=== PATIENT | female | born 1980 | race Caucasian/White ===

== ENCOUNTER 2022-01-08 10:25 | Outpatient (CLI) | payer MEDICARE, MEDICAID, SELFPAY ==
[2022-01-08 10:43] LABS: Hematocrit 38.8 % (37.0-47.0); Hemoglobin 12.9 g/dL (12.0-15.0); Mean Corpuscular HGB Conc 33.2 g/dl (32-36); Mean Corpuscular Volume 93.3 fl (80-100); Mean Platelet Volume 10.8 fl (7.4-10.4); Platelet Count Result 188 k/mm3 (150-375); Red Blood Count 4.16 M/mm3 (4.2-5.4); Red Cell Distribution Width 14.7 % (11.5-14.5); White Blood Count 5.7 K/mm3 (4.5-10.0)
== END 2022-01-08 10:26 | disposition home or self-care (01) ==
LOC: ANHSURGERY 10:32
PROVIDERS: PCP Family Medicine; Visit Provider Obstetrics & Gynecology Gynecologic Oncology
DX: Z01.812 Encounter for preprocedural laboratory examination (principal); N93.9 Abnormal uterine and vaginal bleeding, unspecified
CPT/HCPCS: 36415; 85027; 86850; 86900; 86901

== ENCOUNTER 2022-01-11 00:55 | Day surgery (SDC) | payer MEDICARE, MEDICAID, SELFPAY ==
[2022-01-07 17:33] VITALS: BMI 22.0
--- NOTE | 2022-01-07 17:43 | PC.NURSE ---
Report to the Outpatient Waiting Room, entrance under the green pavilion located off [facility], at time __11:30___ on date _[id number] . OR Time: __1:30 . - You and your visitor will be asked a series of questions to screen for COVID 19 for your protection. - Only one visitor is allowed at this time. - The patient visitor is requested to leave or wait in car when not with patient. - A mask is required within the hospital. Patients may have clear liquids (water, carbonated beverages, clear teas, apple juice) until 3 hours prior to surgery with a maximum of 20 ounces. - No food from midnight until time of surgery - Infants may have breast milk until 4 hours before surgery, infant formula 6 hours prior to surgery. - Children will be allowed to drink immediately following surgery. If applicable, please bring a bottle or sippy cup to assist with drinking. Juice, water, soda, and popsicles are readily available. For infants on formula, please bring formula the day of surgery. Pacifiers are allowed. Take the following medications with a SIP of water the morning of surgery: INHALERS NEEDED Medications to discontinue per physician N/A Date to take last dose N/A Please no make-up, nail sammarinese, hairspray, perfume, deodorant, or body powder the day of surgery. No jewelry (including any body piercings) or valuables the day of surgery, leave them at home. Please take a shower or bath the night before, or the morning of, surgery with an antibacterial soap. Wear comfortable, loose fitting clothing. Children are encouraged to wear pajamas. - Jewelry must be removed prior to entering the operating room. Rings and piercings that are not removed may be cut off. - The hospital will not accept responsibility for valuables. - Please leave all valuables, including medications, at home the day of surgery. If you are going home after surgery, a licensed parcel post truck driver must drive you home. - NO public transportation without another adult. - We recommend that an adult stay with you for 24 hours following discharge. - We also recommend that you do not drive, make important decision, drink alcoholic beverages, or take any drugs that were not prescribed by your health care provider for at least 24 hours after your discharge time. Follow any additional instructions given to you from your surgeon. If you or anyone in your household have experienced Covid symptoms in the past week, please notify your surgeon or the nurse liaison at the phone number below for possible testing. Telephone instructions given to BRITTANY JERONIMO and asked if any additional questions and then verbalized understanding. Patient advised to call surgeon office or pre surgery nurse liaison [phone] if any additional questions.
--- NOTE | 2022-01-10 14:25 | P.PNAN_ITS ---
Anes - Eval Pre Procedure Procedure: Operation Date: 01/11/22 13:00 Proposed Procedures p Diagnostic Laparoscopy, Bilateral Salpingectomy - Juany Van DO s Hysteroscopy, Dilation and Curettage, Novasure Endometrial Ablation - Juany Van DO Date/Time: 01/10/22 14:25 Pre Op Diagnosis: desires sterility, abn uterine bleeding Patient Data Age: 41 Gender: F Height: 1.65 m Weight: 60 kg Allergies Allergy/AdvReac Type Severity Reaction Status Date / Time doxycycline AdvReac Intermediate Blister Verified 01/07/22 17:32 sulfamethoxazole AdvReac Intermediate Blister Verified 01/07/22 17:32 [From Bactrim] trimethoprim [From Bactrim] AdvReac Intermediate Blister Verified 01/07/22 17:32 Home Medications Medication Instructions Recorded Confirmed Type albuterol sulfate 2 puff INHALATION PRN 01/07/22 History fluticasone propion-salmeterol 1 ea INHALATION PRN 01/07/22 History [Advair Diskus] Patient hx anesthesia problems: none Family hx anesthesia problems: none Results Review: All pre-operative results and documents have been reviewed as part of the pre-operative evaluation. [facility] Past Medical History Medical History (Updated 01/10/22 @ 14:24 by Sagar Michael DO) Anxiety Asthma COPD (chronic obstructive pulmonary disease) PTSD (post-traumatic stress disorder) Social History Social History Smoking packs per day: 0.5 Smoking cigarettes per day: 10.0 Years smoked: 20 Smoking pack-years: 10.00 Tobacco type: cigarettes Smoking end date: 06/13/20 Substance use: current Substance use type: marijuana Last use: 01-07-22 Spiritual care concerns: No Exam Day of Procedure 01/10/22 14:25
[2022-01-11] VITALS (9 sets, daily range): BP systolic 118–127; BP diastolic 64–79; PULSE 61–101; RESP 12–20; TEMP 36.3–36.4; O2SAT 100
--- NOTE | 2022-01-11 07:45 | P.PNAN_ITS ---
Anes - Initial Pre Proc Eval Procedure: Operation Date: 01/11/22 13:00 Proposed Procedures p Diagnostic Laparoscopy, Bilateral Salpingectomy - Juany Van DO s Hysteroscopy, Dilation and Curettage, Novasure Endometrial Ablation - Juany Van DO Date/Time: 01/11/22 07:45 Surgeon: Juany Van DO Pre Op Diagnosis: desires sterility, abn uterine bleeding Patient Data Age: 41 Gender: F Height: 1.65 m Weight: 60 kg Allergies Allergy/AdvReac Type Severity Reaction Status Date / Time doxycycline AdvReac Intermediate Blister Verified 01/07/22 17:32 sulfamethoxazole AdvReac Intermediate Blister Verified 01/07/22 17:32 [From Bactrim] trimethoprim [From Bactrim] AdvReac Intermediate Blister Verified 01/07/22 17:32 Home Medications Medication Instructions Recorded Confirmed Type albuterol sulfate 2 puff INHALATION DAILY PRN 01/07/22 01/11/22 History fluticasone propion-salmeterol 1 ea INHALATION DAILY PRN 01/07/22 01/11/22 History [Advair Diskus] acetaminophen 1,000 mg PO Q6H PRN #30 cap 01/11/22 Rx gabapentin 300 mg PO TID #12 cap 01/11/22 Rx hydrocodone-acetaminophen 1 tablet PO Q6H PRN #8 tablet 01/11/22 Rx ibuprofen 600 mg PO Q6H PRN #30 tablet 01/11/22 Rx polyethylene glycol 3350 [Miralax] 17 g PO BID #119 g 01/11/22 Rx Patient hx anesthesia problems: none Family hx anesthesia problems: none Results Review: All pre-operative results and documents have been reviewed as part of the pre-operative evaluation. [facility] Past Medical History Medical History (Updated 01/11/22 @ 12:28 by Juany Van DO) Anxiety Asthma COPD (chronic obstructive pulmonary disease) PTSD (post-traumatic stress disorder) Social History Social History Smoking packs per day: 0.5 Smoking cigarettes per day: 10.0 Years smoked: 20 Smoking pack-years: 10.00 Tobacco type: cigarettes Smoking end date: 06/13/20 Substance use: current Substance use type: marijuana Last use: 01-07-22 Living arrangements: with family Spiritual care concerns: No Anes - Eval Final PreProcedure Day of Procedure 01/11/22 07:45 Patient weight: normal Heart: regular rate and rhythm Lungs: clear to auscultation and normal air movement Airway: Mallampati scale class II Neurological: alert and oriented Last oral intake: >/= 8 hours ASA classification: III Emergent: no Anesthetic plan: proceed Anesthesia type and monitoring: general ETT and standard monitoring Results Review: All pre-operative results and documents have been reviewed as part of the pre-operative evaluation. Informed Consent: The patient's anesthetic plan and its attendant risks and benefits were discussed with the patient/family/POA. Questions were solicited and answers provided to the satisfaction of the patient/family/POA.
[2022-01-11] MEDS: GABAPENTIN 300 MG CAPSULE PO (11:37)
[2022-01-11] MEDS: ACETAMINOPHEN 500 MG TABLET 1000 MG PO (11:37)
[2022-01-11] MEDS: LACTATED RINGERS 1,000 ML 30 ML IV CONT ×2 (11:39→13:32)
--- NOTE | 2022-01-11 12:25 | PM.IMHP ---
H&P: HPI History of Present Illness Date/Time: 01/11/22 12:25 Chief Complaint: I'm here for my surgery Narrative: She presents for diagnostic lap, bilateral salpingectomy, hysteroscopy, D&C, Novasure ablation for heavy periods and desiring permanent sterilization. Review of Systems Review of Systems: All systems reviewed & are unremarkable except as noted in HPI and below PMFSH Past Medical History Medical History (Updated 01/11/22 @ 12:28 by Juany Van DO) Anxiety Asthma COPD (chronic obstructive pulmonary disease) PTSD (post-traumatic stress disorder) Social History Social History Smoking packs per day: 0.5 Smoking cigarettes per day: 10.0 Years smoked: 20 Smoking pack-years: 10.00 Tobacco type: cigarettes Smoking end date: 06/13/20 Substance use: current Substance use type: marijuana Last use: 01-07-22 Living arrangements: with family Spiritual care concerns: No Meds Home Medications and Allergies Home Medications Medication Instructions Recorded Confirmed Type albuterol sulfate 2 puff INHALATION DAILY PRN 01/07/22 01/11/22 History fluticasone propion-salmeterol 1 ea INHALATION DAILY PRN 01/07/22 01/11/22 History [Advair Diskus] Allergies Allergy/AdvReac Type Severity Reaction Status Date / Time doxycycline AdvReac Intermediate Blister Verified 01/07/22 17:32 sulfamethoxazole AdvReac Intermediate Blister Verified 01/07/22 17:32 [From Bactrim] trimethoprim [From Bactrim] AdvReac Intermediate Blister Verified 01/07/22 17:32 Vital Signs Vital Signs - 24 hr 01/11/22 11:44 Temperature 36.3 C L Pulse Rate 76 Respiratory Rate 20 Blood Pressure 123/70 Pulse Oximetry 100 Exam Const: General: comfortable and no acute distress Resp: Effort & Inspection: normal respiratory effort Auscultation: clear to auscultation bilaterally Cardio: Rate: regular rate Rhythm: regular rhythm GI: GI Palp: Yes Soft to palpation Percussion: Yes normal to percussion Auscultation: normal bowel sounds Skin: General skin exam: normal color and no rashes or lesions noted Psych: Mental Status: mental status grossly normal Affect: normal affect Assessment and Plan Assessment and plan (1) Menorrhagia: Code(s): N92.0 - Excessive and frequent menstruation with regular cycle Status: Acute (2) Sterilization: Code(s): Z30.2 - Encounter for sterilization Status: Acute
--- NOTE | 2022-01-11 12:28 | WPDHPUPDATE1 ---
History and Physical Update Update Date/Time: 01/11/22 12:28 History and Physical has been reviewed, including an updated exam of the patient. There are NO changes in the patient's condition. Risks, benefits, and alternatives have been discussed and questions answered. Patient agrees to proceed with procedure.
[2022-01-11] MEDS: BUPIVACAINE/EPINEPHRINE 0.25% 50 ML VIAL 18 ML INFILTRATE (13:28)
--- NOTE | 2022-01-11 13:34 | P.OP_ITS ---
Procedure Note - Detailed Date of Procedure 01/11/22 Pre-op Diagnosis Desires sterilization, abnormal uterine bleeding, menorrhagia Post-op Diagnosis Same Procedure Performed Diagnostic laparoscopy, bilateral salpingectomy. Hysteroscopy, D&c, Novasure ablation Surgeon Juany Van, DO Anesthesia General Indications Desires sterilization, abnormal uterine bleeding, menorrhagia Findings Normal appearing vulva and vaginal canal, normal medium cervix with several nabothian cysts. Internally, her liver, intestines and pelvic organs appeared normal. Description of Procedure The patient was taken to the operating room where she was placed under general anesthesia. She was prepped and draped in the normal sterile fashion in a dorsal lithotomy position. No preoperative antibiotics were indicated. A time- out was performed. The skin below the umbilicus was grasped with 2 penetrating towel clamps and was injected with local. An incision was made and a Veress needle was introduced. The saline water drop test was performed to confirm intraperitoneal placement. CO2 insufflation was started and the abdomen was brought up to a filling pressure of 15 mmHg. A 5 mm Optiview trocar was inserted under direct visualization. The patient was then placed in steep Trendelenburg position survey of the abdomen revealed the above-mentioned findings with no evidence of bowel or vascular injury. Additional trocar sites in the right and left lower quadrants were identified, injected, incised and 5 mm trocars and introduced under direct visualization. The abdomen was then brought down to a filling pressure of 11 mmHg to decrease postoperative pain. The uterus was then elevated and the right tube was cauterized and transected off using LigaSure. It was passed off through the family services assistant port. The pr ocedure was repeated in identical fashion on the left side and the tube was then removed from the body. The surgical pedicles were reinspected and found to be hemostatic. The CO2 insufflation was allowed to escape and the trocars and camera were removed. The trocar sites were then closed with subcuticular 4-0 Monocryl and covered with Steri-Strips. We then turned our attention to the hysteroscopic portion of the procedure. Cervix was visualized using a speculum and anterior lip was grasped with a long Allis clamp. Paracervical block using Marcaine containing epinephrine was performed. Cervix was then sequentially dilated up to accommodate the hysteroscope. Survey of the endometrial cavity revealed a normal shaped cavity with no lesions. Both tubal ostia were visualized. The endometrial cavity and cervical length were measured. The hysteroscope was then removed. Thorough curettage of the endometrial cavity was performed and the specimen was handed off. The NovaSure was introduced the endometrial cavity length was 5.5 cm, cervix was 3 cm. The endometrial cavity width was 3.3 cm. The device is activated at 100 w for 1 minute 20 seconds. The device was then retracted and allowed to cool. All instruments and fluid were removed from the vaginal canal. Patient was taken to the recovery room in stable condition. All instrument sponge counts were correct at the conclusion of the procedure. Estimated Blood Loss 10 IV Fluids 1,100 Urine Output 300 Drains No Packing No Pathology Yes Complications No immediate complications Condition Stable Disposition PACU
[2022-01-11] MEDS: fentaNYL CITRATE INJ (*CRX) 100 MCG/2 ML VIAL 25 MCG IV PUSH (14:00)
[2022-01-11] MEDS: oxyCODONE HCL (*CRX) 5 MG TAB IR PO (15:24)
== END 2022-01-11 15:45 | disposition home or self-care (01) ==
PROVIDERS: PCP Family Medicine; Visit Provider Obstetrics & Gynecology Gynecologic Oncology
PROC: (CPT 49320; principal; 2022-01-11 13:00)
PROC: 0U5B8ZZ Destruction of Endometrium, Via Natural or Artificial Opening Endoscopic (ICD-10-PCS; CPT 58563; 2022-01-11 13:00)
DX: Z30.2 Encounter for sterilization (principal); N93.9 Abnormal uterine and vaginal bleeding, unspecified; N92.0 Excessive and frequent menstruation with regular cycle; F41.9 Anxiety disorder, unspecified; J45.909 Unspecified asthma, uncomplicated; J44.9 Chronic obstructive pulmonary disease, unspecified; F43.10 Post-traumatic stress disorder, unspecified; F12.90 Cannabis use, unspecified, uncomplicated; Z87.891 Personal history of nicotine dependence; Z79.51 Long term (current) use of inhaled steroids
CPT/HCPCS: 58661; 58563; 88302; 88305; A9270; J1100; J1885; J2250; J2405; J2704; J3010; J7120

== ENCOUNTER 2025-06-23 09:07 | Outpatient (CLI) | payer MEDICARE, MEDICAID, SELFPAY ==
--- NOTE | ~2025-06-23 | CT_ITS ---
EXAMINATION: CT sinus wo con COMPARISON: None HISTORY: Chronic maxillary sinusitis TECHNIQUE: Axial images were obtained without IV contrast. Sagittal, coronal reconstruction images were obtained from the axial views. CT scan performed using dose optimization techniques including the following automated exposure control; adjustment of mA and/or kV; use of iterative reconstruction technique. Automatic exposure control was used to reduce radiation dose. Permanent radiation dose record is archived to PACS. FINDINGS: Visualized brain parenchyma, orbits and soft tissues appear unremarkable. Minimal mucosal thickening in the frontal and ethmoidal air cells. Minimal mucosal thickening in the maxillary sinuses. The ostiomeatal complexes are patent. The nasal septum is deviated to the left with thickening of the turbinates and narrowing of the nasal cavities bilaterally. No osseous destruction or wall thickening is identified. The sphenoid sinuses appear unremarkable. IMPRESSION: Sinusitis detailed above Reviewed, dictated and finalized at location P. IMPRESSION: Sinusitis detailed above
== END 2025-06-23 09:08 | disposition home or self-care (01) ==
LOC: MICIMG 09:09
PROVIDERS: PCP Nurse Practitioner Family; Visit Provider Otolaryngology
DX: J32.0 Chronic maxillary sinusitis (principal)
CPT/HCPCS: 70486

== ENCOUNTER 2025-06-30 09:52 | Outpatient (CLI) | payer MEDICARE, MEDICAID, SELFPAY ==
--- OUTSIDE RECORDS SUMMARY | 2025-06-30 10:41 | XMS_ITS | Clinical Summary ---
Author Organization [facility] Address [address] [place] [address] Care Team Providers Care Varnish Melter Helper Name Role Phone Unavailable Primary Care Provider Unavailabl e Source Comments [facility],non-owned Affiliates and Associated Physician Practices is amultiple site organization consisting of ambulatory clinics and hospital sitesin [place], [place], [place] and [place]. This disclosure is being madepursuant to the Care Everywhere program and may not contain all information available regarding this patient. Last updated 18.[facility] Active Problems Problem Noted Date Diagnosed Date Encounter for (NT) nuchal translucency scan 10/09 Social History Tobacco Use Types Packs/Day Years Used Date Smoking Tobacco: Never Assessed Comments No Sex and Gender Information Value Date Recorded Sex Assigned at Not on file Legal Sex Female 2:09 PM [employer] Gender Identity Not on file Sexual Orientation Not on file Plan of Treatment Health Maintenance Due Date Last Done Comments LIPID TESTING 1982 MAMMOGRAM 1982 HIV SCREENING 1997 HEPATITIS C SCREENING 08/23/2000 DTAP/TDAP/TD VACCINES (1 - Tdap) 2001 HEPATITIS B VACCINE (1 of 3 - 19+ 3-dose series) 2001 HPV VACCINE (1 - 3-dose SCDM series) 2009 DEPRESSION SCREENING 09/08/2024 COVID-19 VACCINE (1 - 2023-2 5 season) 2025 INFLUENZA VACCINE (#1) 2025 ZOSTER VACCINE (1 of 2) 2032 HIB VACCINE Aged Out No longer eligi ble based on patient's age to complete this topic MENINGOCOCCAL (Group B) VACC INE SHARED DECISION-MAKING Aged Out No longer eligibl e based on patient's age to complete this topic MENINGOCOCCAL GROUPS A/C/Y/W VACCINE Aged Out No longer eligible b ased on patient's age to complete this topic PNEUMOCOCCAL VACCINE Aged Out No long er eligible based on patient's age to complete this topic Insurance MEDICAID - [place] MEDICARE MEDICARE MEDICAID - [facility]
== END 2025-06-30 09:53 | disposition home or self-care (01) ==
LOC: ANHAUDIO 09:54
PROVIDERS: PCP Nurse Practitioner Family; Visit Provider Otolaryngology
DX: H90.2 Conductive hearing loss, unspecified (principal); H90.6 Mixed conductive and sensorineural hearing loss, bilateral; J32.0 Chronic maxillary sinusitis
CPT/HCPCS: 92557; 92567

== ENCOUNTER 2025-07-20 01:58 | Day surgery (SDC) | payer MEDICARE, MEDICAID, SELFPAY ==
[2025-07-11 09:42] VITALS: BMI 22.0
[2025-07-20 10:55] VITALS: BP 143/86; PULSE 70; RESP 16; TEMP 36.5; O2SAT 100; BMI 21.4
--- NOTE | 2025-07-20 11:11 | WPDANESEPPF ---
Anes - Initial Pre Proc Eval Procedure: Operation Date: 07/20/25 11:30 Proposed Procedures p EGD & Diagnostic Colonoscopy - Leland Soriano MD Date/Time: 07/20/25 11:11 Surgeon: Leland Soriano MD Pre Op Diagnosis: Nausea with vomiting,diarrhea,melena Patient Data Age: 44 Gender: F Height: 1.65 m Weight: 58.5 kg Last Vital Signs Temp 36.5 C 07/20/25 10:55 Pulse 70 07/20/25 10:55 Resp 16 07/20/25 10:55 BP 143/86 H 07/20/25 10:55 Pulse Ox 100 07/20/25 10:55 O2 Del Method Room Air 07/20/25 10:55 Allergies Allergy/AdvReac Type Severity Reaction Status Date / Time levofloxacin (From Levaquin) Allergy Mild Blister Verified 07/20/25 11:02 doxycycline AdvReac Intermediate Blister Verified 07/20/25 11:02 sulfamethoxazole (From AdvReac Intermediate Blister Verified 07/20/25 11:02 Bactrim) trimethoprim (From Bactrim) AdvReac Intermediate Blister Verified 07/20/25 11:02 Home Medications ?Medication ?Instructions ?Recorded ?Confirmed ?Type albuterol sulfate 90 mcg/actuation 2 puff inhalation DAILY PRN 01/07/22 07/11/25 History aerosol inhaler Shortness Of Breath fluticasone 250 mcg-salmeterol 50 1 ea inhalation DAILY PRN 01/07/22 07/11/25 History mcg/dose blistr powdr for Shortness Of Breath inhalation (Advair Diskus) ondansetron 4 mg disintegrating 4 mg PO Q8H 01/13/25 07/20/25 History tablet sucralfate 1 gram tablet 1 g PO Q6H PRN vomiting 01/13/25 07/11/25 History amoxicillin 500 mg-potassium 1 tablet PO Q12H chronic left 06/15/25 07/11/25 Rx clavulanate 125 mg tablet maxillary sinusitis #20 tabs (Augmentin) ofloxacin 0.3 % eye drops 4 drp otic (ear) BID otitis 06/15/25 07/20/25 Rx externa chronic #10 mL famotidine 20 mg tablet See Rx Instructions .Route 06/29/25 07/20/25 Rx .COMPLEX #60 tabs fluticasone furoate 100 1 inh inhalation Q4H PRN shortness 07/11/25 07/11/25 History mcg-vilanterol 25 mcg/dose of breath inhalation powder Patient hx anesthesia problems: none Family hx anesthesia problems: none Results Review: All pre-operative results and documents have been reviewed as part of the pre-operative evaluation. [facility] Past Medical History Medical History Marijuana use Family history of adenomatous polyp of colon Blood in stool Diarrhea Nausea & vomiting PTSD (post-traumatic stress disorder) Anxiety COPD (chronic obstructive pulmonary disease) Asthma Social History Social History Smoking packs per day: 0.5 Smoking cigarettes per day: 10.0 Years smoked: 20 Smoking pack-years: 10.00 Smoking status: Former smoker Tobacco type: cigarettes and e-cigarettes/vaping Smoking end date: 06/13/20 Additional smoking assessment comments: Only vapes now Alcohol intake: never Substance use: current Substance use type: marijuana Other substance usage details: 3x a day Last use: 01-07-22 Living arrangements: with family Spiritual care concerns: No Anes - Eval Final PreProcedure Day of Procedure 07/20/25 11:11 Patient weight: normal Heart: regular rate and rhythm Lungs: clear to auscultation and normal air movement Airway: Mallampati scale class II Neurological: alert and oriented Last oral intake: >/= 8 hours ASA classification: III Emergent: no Anesthetic plan: proceed Anesthesia type and monitoring: general GIVS and standard monitoring Results Review: All pre-operative results and documents have been reviewed as part of the pre-operative evaluation. Informed Consent: The patient's anesthetic plan and its attendant risks and benefits were discussed with the patient/family/POA. Questions were solicited and answers provided to the satisfaction of the patient/family/POA.
[2025-07-20] MEDS: LACTATED RINGERS 1,000 ML 30 ML IV CONT (11:18)
--- NOTE | 2025-07-20 11:51 | P.HP_ITS ---
History of Present Illness History of Present Illness Consent: Risks, benefits, and alternatives have been discussed and questions answered. Patient agrees to proceed with procedure. Chief complaint: Nausea with vomiting,diarrhea,melena Narrative: Sophia Silva is a 44 year old female here for first egd/colonoscopy, cyclic episodes of intermittent episodes of n/v with diarrhea. she smokes marijuana Review of Systems Review of Systems: All systems reviewed & are unremarkable except as noted in HPI and below PMFSH Past Medical History Medical History Marijuana use Family history of adenomatous polyp of colon Blood in stool Diarrhea Nausea & vomiting PTSD (post-traumatic stress disorder) Anxiety COPD (chronic obstructive pulmonary disease) Asthma Social History Social History Smoking packs per day: 0.5 Smoking cigarettes per day: 10.0 Years smoked: 20 Smoking pack-years: 10.00 Smoking status: Former smoker Tobacco type: cigarettes and e-cigarettes/vaping Smoking end date: 06/13/20 Additional smoking assessment comments: Only vapes now Alcohol intake: never Substance use: current Substance use type: marijuana Other substance usage details: 3x a day Last use: 01-07-22 Living arrangements: with family Spiritual care concerns: No Meds Home Medications and Allergies Home Medications ?Medication ?Instructions ?Recorded ?Confirmed ?Type albuterol sulfate 90 mcg/actuation 2 puff inhalation D AILY PRN 01/07/22 07/11/25 History aerosol inhaler Shortness Of Breath fluticasone 250 mcg-salmeterol 50 1 ea inhalation GIORGI Y PRN 01/07/22 07/11/25 History mcg/dose blistr powdr for Shortness Of Breath inhalation (Advair Diskus) ondansetron 4 mg disintegrating 4 mg PO Q8H 01/13/25 1 09/19/24 History tablet sucralfate 1 gram tablet 1 g PO Q6H PRN vomiting 05/05/0207/11/25 History amoxicillin 500 mg-potassium 1 tablet PO Q12H chronic left 06/15/25 07/11/25 Rx clavulanate 125 mg tablet maxillary sinusitis #20 tabs (Augmentin) ofloxacin 0.3 % eye drops 4 drp otic (ear) BID otitis 06/15/25 07/20/25 Rx externa chronic #10 mL famotidine 20 mg tablet See Rx Instructions .Route 1 07/20/25 Rx .COMPLEX #60 tabs fluticasone furoate 100 1 inh inhalation Q4H PRN maria e rtness 07/11/25 07/11/25 History mcg-vilanterol 25 mcg/dose of breath inhalation powder Allergies Allergy/AdvReac Type Severity Reaction Status Date / Time levofloxacin (From Levaquin) Allergy Mild Blister Verified 07/20/25 11:02 doxycycline AdvReac Intermediate Blister Verified 07/20/25 11:02 sulfamethoxazole (From AdvReac Intermediate Blister Verified 07/20/25 11:02 Bactrim) trimethoprim (From Bactrim) AdvReac Intermediate Blister Verified 07/20/25 11:02 Vital Signs Vital Signs - 24 hr 07/20/25 10:55 Temperature 97.7 F Pulse Rate 70 Respiratory Rate 16 Blood Pressure 143/86 H Pulse Oximetry 100 Oxygen Delivery Room Air Exam Const: General: comfortable and no acute distress HENMT: Face/Nose/Sinus: Normal nares present Eyes: General: appearance normal, both eyes and all related structures Neck: Neck: no JVD Resp: Auscultation: clear to auscultation bilaterally Cardio: Rate: regular rate Rhythm: regular rhythm GI: Inspection: non-distended GI Palp: Yes Soft to palpation Skin: General skin exam: normal color Extrem: General: normal to inspection Psych: Mental Status: mental status grossly normal Assessment and Plan Assessment and plan (1) Nausea & vomiting: Code(s): R11.2 - Nausea with vomiting, unspecified Status: Acute Assessment and Plan: egd (2) Diarrhea: Code(s): R19.7 - Diarrhea, unspecified Status: Acute Assessment and Plan: colonoscopy
[2025-07-20] MEDS: BENZOCAINE (*SP) 60 ML SPRAY CAN (HURRICAINE) 1 SPRAY MUCOUS MEM (11:59)
--- NOTE | 2025-07-20 12:07 | SUR.OPER ---
EGD ended 1203 colonoscopy started 1207
--- NOTE | 2025-07-20 12:08 | S_PTH ---
PATIENT: Sophia Silva LOC: [facility]#:[id number] AGE/SX: 44/F ROOM: RE07/20/[address]: Leland Soriano MD : 1980 BED: DIS: 07/20/2025 SPEC #: [id number] RECD: 07/20/25 13:23 STATUS: CHERYLE REKaylen #: [id number] SHEELA: 07/20/25 12:[address]: Leland Soriano DEPT: [facility] Surgical RECD BY: Aurelia Sevilla ENTERED: 07/20/25 13:24 SP TYPE: Surgical OTHR DR: Joanna Ross Tissues: A - Small Bowel Bx B - Gastric Biopsy C - Colon Biopsy Procedures: Hematoxylin and Eosin Stain Gross and Microscopic Level 4
[2025-07-20 12:18] VITALS: BP 102/60; PULSE 66; RESP 20; O2SAT 99
[2025-07-20 12:28] VITALS: BP 105/57; PULSE 59; RESP 18; O2SAT 100
[2025-07-20 12:38] VITALS: BP 93/79; PULSE 82; RESP 18; O2SAT 93
== END 2025-07-20 12:56 | disposition home or self-care (01) ==
PROVIDERS: PCP Nurse Practitioner Family; Referring Provider Nurse Practitioner Family; Visit Provider Internal Medicine Gastroenterology
PROC: 0DJ08ZZ Inspection of Upper Intestinal Tract, Via Natural or Artificial Opening Endoscopic (ICD-10-PCS; CPT 45378; principal; 2025-07-20 11:30)
DX: K21.9 Gastro-esophageal reflux disease without esophagitis (principal); K29.70 Gastritis, unspecified, without bleeding; J44.9 Chronic obstructive pulmonary disease, unspecified; F41.9 Anxiety disorder, unspecified; F43.10 Post-traumatic stress disorder, unspecified; F12.90 Cannabis use, unspecified, uncomplicated; F17.290 Nicotine dependence, other tobacco product, uncomplicated; Z79.51 Long term (current) use of inhaled steroids; Z83.719 Family history of colon polyps, unspecified
CPT/HCPCS: 43239; 45380; 88305; J2003; J2704; J7120